=== PATIENT | male | born 1995 | race Caucasian/White ===

== ENCOUNTER 2017-02-05 06:08 | Emergency (ER) | payer OTHER ==
[2017-02-05 06:29] VITALS: BP 114/70; PULSE 100; TEMP 97.9; BMI 21.5
--- NOTE | 2017-02-05 07:06 | PDOC ---
History of Present Illness - General History Source: Patient Exam Limitations: No Limitations - History of Present Illness Initial Comments: 02/05/17 07:20 The patient is a 21 year old male, with no significant past medical history who presents to the emergency department with lightheadedness, nausea, and vomiting. The patient reports feeling nauseous for about a week, with one episode of vomiting (nonbloody;nonbilious) yesterday. The patient reports most of his dorm having similar symptoms throughout this past week. Patient also reports having a history of fainting problems. He reports having a previous cardiac work up that was completely negative and showed no clear cause of the patients fainting episodes. He denies any recent fevers, chills, or headache. He denies any recent diarrhea or constipation. He denies any recent chest pain or shortness of breath. He denies any recent dysuria, frequency, urgency or hematuria. Allergies: NKA Past surgical history: None reported. Social History: Nonsmoker. Social EtOH use and no recreational drug use. <Yemi Griffin - Last Filed: 02/05/17 07:27> <Bj Costello - Last Filed: 02/05/17 10:22> - General Chief Complaint: Nausea Stated Complaint: NAUSEA/LIGHTHEADED Time Seen by Provider: 02/05/17 07:02 Past History <Yemi Griffin - Last Filed: 02/05/17 07:27> - Past Medical History Other medical history: hx : passing out (work up inconclusive) father w/ WPW - Suicide/Smoking/Psychosocial Hx Smoking History: Never smoked Information on smoking cessation initiated: No <Bj Costello - Last Filed: 02/05/17 10:22> - Past Medical History Allergies/Adverse Reactions: Allergies Allergy/AdvReac Type Severity Reaction Status Date / Time ibuprofen [From Motrin] Allergy Verified 02/05/17 06:23 Home Medications: Ambulatory Orders Ondansetron [Zofran *Odt*] 8 mg SL TID #30 od.tablet 02/05/17 Review of Systems - Review of Systems Able to Perform ROS?: Yes Comments:: 02/05/17 07:20 GENERAL/CONSTITUTIONAL: No fever or chills. No weakness. HEAD, EYES, EARS, NOSE AND THROAT: No change in vision. No ear pain or discharge. No sore throat. CARDIOVASCULAR: +lightheadedness. No chest pain or shortness of breath. RESPIRATORY: No cough, wheezing, or hemoptysis. GASTROINTESTINAL: +nausea, vomiting. No diarrhea or constipation. GENITOURINARY: No dysuria, frequency, or change in urination. MUSCULOSKELETAL: No joint or muscle swelling or pain. No neck or back pain. SKIN: No rash NEUROLOGIC: No headache, vertigo, loss of consciousness, or change in strength/ sensation. ENDOCRINE: No increased thirst. No abnormal weight change. HEMATOLOGIC/LYMPHATIC: No anemia, easy bleeding, or history of blood clots. ALLERGIC/IMMUNOLOGIC: No hives or skin allergy. <Yemi Griffin - Last Filed: 02/05/17 07:27> *Physical Exam - Vital Signs Last Vital Signs Temp Pulse Resp BP Pulse Ox 97.9 F 100 H 18 114/70 100 02/05/17 06:23 02/05/17 06:23 02/05/17 06:23 02/05/17 06:23 02/05/17 06:23 - Physical Exam Comments: 02/05/17 07:20 GENERAL: Awake, alert, and fully oriented, in no acute distress HEAD: No signs of trauma EYES: PERRLA, EOMI, sclera anicteric, conjunctiva clear ENT: Auricles normal inspection, hearing grossly normal, nares patent, oropharynx clear without exudates. Moist mucosa NECK: Normal ROM, supple, no lymphadenopathy, JVD, or masses LUNGS: Breath sounds equal, clear to auscultation bilaterally. No wheezes, and no crackles HEART: Regular rate and rhythm, normal S1 and S2, no murmurs, rubs or gallops ABDOMEN: Soft, nontender, normoactive bowel sounds. No guarding, no rebound. No masses EXTREMITIES: Normal range of motion, no edema. No clubbing or cyanosis. No cords, erythema, or tenderness NEUROLOGICAL: Cranial nerves II through XII grossly intact. Normal speech, normal gait SKIN: Warm, Dry, normal turgor, no rashes or lesions noted. <Yemi Griffin - Last Filed: 02/05/17 07:27> - Vital Signs Last Vital Signs Temp Pulse Resp BP Pulse Ox 97.9 F 100 H 18 114/70 100 02/05/17 06:23 02/05/17 06:23 02/05/17 06:23 02/05/17 06:23 02/05/17 06:23 <Bj Costello - Last Filed: 02/05/17 10:22> Heart Score/ECG Review - ECG Impressions Comment:: 02/05/17 07:28 EKG impressions reported by : Normal sinus rhythm at 91 bpm MI interval 144 ms QTc 467 ms <Yemi Griffin - Last Filed: 02/05/17 07:27> ED Treatment Course - LABORATORY CBC & Chemistry Diagram: 02/05/17 07:30 02/05/17 07:30 <Bj Costello - Last Filed: 02/05/17 10:22> *DC/Admit/Observation/Transfer - Attestations Scribe Attestion: 02/05/17 07:21 Documentation prepared by Yemi Griffin, acting as medical records director for Bj Costello DO. <Yemi Griffin - Last Filed: 02/05/17 07:27> - Discharge Dispostion Admit: No - Attestations Physician Attestion: 02/05/17 07:04 I, Dr. Bj Costello, attest that this document has been prepared under my direction and personally reviewed by me in its entirety. I further attest, that it accurately reflects all work, treatment, procedures and medical decision -making performed by me. <Bj Costello - Last Filed: 02/05/17 10:22> Diagnosis at time of Disposition: Mild dehydration - Discharge Dispostion Disposition: HOME Condition at time of disposition: Improved - Prescriptions Prescriptions: Ondansetron [Zofran *Odt*] 8 mg SL TID #30 od.tablet - Referrals Referrals: STAFF,NOT ON [Primary Care Provider] - Kalyani Steele MD [Staff Physician] - - Patient Instructions Printed Discharge Instructions: DI for Dehydration -- Adult Additional Instructions: Brian- Sorry you have not been feeling well. You were mildly dehydrated. Use the Zofran for nausea, and drink at least 5 twenty ounce bottles of water each day. Return to us if worse or new symptoms develop. Follow up with your doctor next week. Best- Dr. Bj Costello - Post Discharge Activity Forms/Work/School Notes: Back to School
[2017-02-05] MEDS ORDERED: ONDANSETRON 4 MG/2 ML VIAL IVPUSH ONE (07:14)
[2017-02-05] MEDS ORDERED: SODIUM CHLORIDE 2,000 ML IV STA (07:14)
[2017-02-05] MEDS ORDERED: ONDANSETRON 4 MG/2 ML VIAL ONE (07:52)
[2017-02-05 08:40] LABS: URINE APPEARANCE CLEAR; URINE BILIRUBIN NEGATIVE (NEGATIVE); URINE BLOOD NEGATIVE (NEGATIVE); URINE COLOR LTYELLOW; URINE GLUCOSE (UA) NEGATIVE (NEGATIVE); URINE KETONE TRACE (NEGATIVE); URINE LEUK ESTERASE NEGATIVE (NEGATIVE); URINE NITRITE NEGATIVE (NEGATIVE); URINE PROTEIN NEGATIVE (NEGATIVE); URINE UROBILINOGEN NEGATIVE mg/dL (0.2-1.0)
[2017-02-05 08:41] LABS: BASOPHIL 0.5 % (0-2.0); EOSINOPHIL 0.3 % (0-4.5); MCH 28.9 pg (25.7-33.7); MCHC 34.1 g/dl (32.0-35.9); MEAN CELL VOLUME 84.7 fl (80-96); MEAN PLT VOLUME 8.1 fl (7.5-11.1); NEUTROPHILS 75.3 % (42.8-82.8); PLATELET COUNT 258 K/MM3 (134-434); RDW 13.2 % (11.9-15.9); WHITE BLOOD COUNT 9.6 K/mm3 (4.0-10.0)
[2017-02-05 08:53] LABS: INR 1.14 (0.82-1.09); PROTHROMBIN TIME (PATIENT) 12.6 SEC (9.98-11.88)
[2017-02-05 09:11] LABS: ALK PHOS 121 U/L (45-117); ANION GAP 8 (8-16); BILIRUBIN,TOTAL 1.5 mg/dL (0.2-1.0); CALCIUM 9.3 mg/dL (8.5-10.1); CO2 30 mmol/L (21-32); CREATININE 0.8 mg/dL (0.7-1.3); GLUCOSE,RANDOM 95 mg/dL (74-106); SGOT/AST 15 U/L (15-37); SGPT/ALT 19 U/L (12-78); TOT PROT 8.3 g/dl (6.4-8.2)
--- NOTE | 2017-02-05 12:12 | EKG ---
Test Reason : Blood Pressure : / mmHG Vent. Rate : 091 BPM Atrial Rate : 091 BPM P-R Int : 144 ms QRS Dur : 116 ms QT Int : 380 ms P-R-T Axes : 077 056 042 degrees QTc Int : 467 ms NORMAL SINUS RHYTHM INCOMPLETE RIGHT BUNDLE BRANCH BLOCK BORDERLINE ECG NO PREVIOUS ECGS AVAILABLE Confirmed by NU LANE MD ([id number]) on 02/05/2017 12:12:15 PM Referred By: Confirmed By:NU LANE MD
== END 2017-02-05 11:09 | disposition home or self-care (01) ==
LOC: JER 06:08
PROC: 3E033GC Introduction of Other Therapeutic Substance into Peripheral Vein, Percutaneous Approach (ICD-10-PCS; principal; 2017-02-05)
PROC: 3E0337Z Introduction of Electrolytic and Water Balance Substance into Peripheral Vein, Percutaneous Approach (ICD-10-PCS; 2017-02-05)
DX: E86.0 Dehydration (principal)
CPT/HCPCS: 36415; 80053; 81003; 83690; 85025; 85610; 93005; 93010; 99282-25